=== PATIENT | female | born 2005 | race Two or more races ===

== ENCOUNTER 2024-07-02 15:04 | Emergency (ER) | payer MEDICAID ==
[~2024-07-02] VITALS: Ht 162.6 cm; Wt 110.5 kg
[~2024-07-02 15:04] MED LIST: INSU100V36 SQ; LANTUS SQ; LEVO25TA2 PO
[2024-07-02] MEDS ORDERED: ALBU8HFA INH (16:10)
[2024-07-02] MEDS ORDERED: PROM118S5 PO (16:10)
[2024-07-02] MEDS ORDERED: PRED50TA PO (16:10)
[2024-07-02 16:28] VITALS: BP 134/86; PULSE 84; RESP 18; TEMP 98.9; O2SAT 94
== END 2024-07-02 16:29 | disposition home or self-care (01) ==
LOC: ER 15:04
DX: J06.9 Acute upper respiratory infection, unspecified (principal)
CPT/HCPCS: 71045; 99283